=== PATIENT | female | born 1970 | race African-American/Black ===

== ENCOUNTER → 2016-12-20 | Outpatient (CLI) | payer OTHER ==
--- NOTE | 2016-12-21 02:12 | REP ---
Clinical: Cough . Comparison: None . Technique: PA and lateral. Findings: The mediastinum and cardiac silhouette are normal. The lung navarrete are clear and without acute consolidation, effusion, or pneumothorax. The skeletal structures are intact and normal. Impression: 1. No acute cardiopulmonary process. Signed by Mauricio Carr MD 12/21/2016 02:03 A
== END ==
LOC: M SMT 13:39
PROVIDERS: ATTEND Internal Medicine Pulmonary Disease
DX: R05 Cough (principal)

== ENCOUNTER → 2016-12-24 | Outpatient (REF) | payer OTHER | LOC: M LAB REF 13:09 | PROVIDERS: ATTEND Internal Medicine Pulmonary Disease | DX: R05 Cough (principal) ==

== ENCOUNTER → 2017-01-15 | Outpatient (REF) | payer OTHER | LOC: M LAB REF 14:12 | PROVIDERS: ATTEND Internal Medicine Pulmonary Disease | DX: R05 Cough (principal) ==

== ENCOUNTER → 2017-02-19 | Outpatient (REF) | payer OTHER | LOC: M LAB REF 17:20 | PROVIDERS: ATTEND Internal Medicine Pulmonary Disease | DX: R05 Cough (principal) ==

== ENCOUNTER → 2017-04-11 | Outpatient (CLI) | payer OTHER | LOC: M RAD 08:58 | DX: Z12.31 Encounter for screening mammogram for malignant neoplasm of breast (principal) | CPT/HCPCS: 77067 ==

== ENCOUNTER → 2017-07-24 | Outpatient (CLI) | payer OTHER ==
[~2017-07-24] MED LIST: LIDOCAINE 1% MDV 20ML VIAL As Ordered
== END ==
LOC: M RADPRO 12:37
DX: D44.0 Neoplasm of uncertain behavior of thyroid gland (principal); R05 Cough; R09.82 Postnasal drip; J31.0 Chronic rhinitis; K21.9 Gastro-esophageal reflux disease without esophagitis; G47.33 Obstructive sleep apnea (adult) (pediatric); G47.61 Periodic limb movement disorder; D15.2 Benign neoplasm of mediastinum; Z79.84 Long term (current) use of oral hypoglycemic drugs; Z79.899 Other long term (current) drug therapy
CPT/HCPCS: 10022

== ENCOUNTER → 2017-08-08 | Outpatient (CLI) | payer OTHER | LOC: M RADPRO 10:53 | DX: D34 Benign neoplasm of thyroid gland (principal); Z79.899 Other long term (current) drug therapy; Z79.84 Long term (current) use of oral hypoglycemic drugs | CPT/HCPCS: 10022 ==

== ENCOUNTER → 2017-11-06 | Outpatient (CLI) | payer OTHER ==
[~2017-11-06] MED LIST changes: +ISOVUE-370 76% 100ML VIAL (Q9967) As Ordered; -LIDOCAINE 1% MDV 20ML VIAL As Ordered
== END ==
LOC: M RAD 12:54
DX: D15.2 Benign neoplasm of mediastinum (principal); K44.9 Diaphragmatic hernia without obstruction or gangrene
CPT/HCPCS: Q9967

== ENCOUNTER → 2017-12-05 | Outpatient (CLI) | payer OTHER ==
[~2017-12-05] MED LIST changes: -ISOVUE-370 76% 100ML VIAL (Q9967) As Ordered; +METHACHOLINE KIT (J7674) INH
== END ==
LOC: M CARPUL 10:11
DX: R05 Cough (principal)

== ENCOUNTER 2018-04-14 09:30 | Day surgery (SDC) | payer OTHER ==
[~2018-04-14] VITALS: Ht 175.3 cm; Wt 98.9 kg
[~2018-04-14 09:30] MED LIST changes: +AMLO5TAB6 PO; +BUSP5TA PO; +DULO1CAP2 PO; +ESZO1TAB6 PO; +FLON1SPR; +GUAIFENESIN; +LOSA100T5 PO; +METF500T13 PO; -METHACHOLINE KIT (J7674) INH; +MONT10TA2 PO; +NS 1,000 ML IV ONE; +PANT40TA3 PO; +PSEUDOEPHEDRINE; +RANI1TAB38 PO
[2018-04-14] MEDS ORDERED: PROPOFOL 200 MG/20 ML VIAL As Ordered ONE (10:08)
[2018-04-14] MEDS ORDERED: LIDOCAINE 2% INJ 100 MG/5 ML SDV (FOR ANES.) As Ordered ONE (10:09)
[2018-04-14] MEDS ORDERED: LABETALOL HCL 100 MG/20 ML VIAL As Ordered ONE (11:10)
--- NOTE | 2018-04-14 11:23 | ROOR ---
Patient Name: Yoav Valle Procedure Date: 04/14/2018 10:56 AM Date of : 1970 Age: 47 Room: [facility] Gender: Female Note Status: Finalized Procedure: Total Colonoscopy to Cecum + Cold Snare Polypectomy + Hemoclips Indications: Lower abdominal pain, Change in bowel habits Providers: Rashawn James MD Referring MD: THAI ANDRE MD Requesting Provider: Medicines: Monitored Anesthesia Care Complications: No immediate complications. Procedure: Pre-Anesthesia Assessment: - The heart rate, respiratory rate, oxygen saturations, blood pressure, adequacy of pulmonary ventilation, and response to care were monitored throughout the procedure. The Colonoscope was introduced through the anus and advanced to the cecum, identified by appendiceal orifice and ileocecal valve. The colonoscopy was performed without difficulty. The patient tolerated the procedure well. The quality of the bowel preparation was excellent. Findings: The perianal and digital rectal examinations were normal. Non-bleeding internal hemorrhoids were found during retroflexion. The hemorrhoids were small and Grade I (internal hemorrhoids that do not prolapse). Multiple small and large-mouthed diverticula were found in the recto-sigmoid colon, sigmoid colon and descending colon. A medium polyp was found at 35 cm proximal to the anus. The polyp was sessile. The polyp was removed with a cold snare. Resection and retrieval were complete. To prevent bleeding after the polypectomy, one hemostatic clip was successfully placed (MR conditional). There was no bleeding at the end of the procedure. The exam was otherwise without abnormality on direct and retroflexion views. The terminal ileum appeared normal. Impression: - Non-bleeding internal hemorrhoids. - Diverticulosis in the recto-sigmoid colon, in the sigmoid colon and in the descending colon. - One medium polyp at 35 cm proximal to the anus, removed with a cold snare. Resected and retrieved. Clip (MR conditional) was placed. - The examination was otherwise normal on direct and retroflexion views. - The examined portion of the ileum was normal. - The exam was otherwise normal to the cecum. Recommendation: - Patient has a contact number available for emergencies. The signs and symptoms of potential delayed complications were discussed with the patient. Return to normal activities tomorrow. Written discharge instructions were provided to the patient. - High fiber diet. - Discharge patient to home. - Continue present medications. - Await pathology results. - Telephone GI clinic for pathology results in 1 week. - Repeat colonoscopy in 10 years for surveillance based on pathology results. - Return to referring physician. - The findings and recommendations were discussed with the patient's family. Rashawn James MD Rashawn James MD 04/14/2018 11:22:44 AM This report has been signed electronically. Number of Addenda: 0 Note Initiated On: 04/14/2018 10:56 AM Estimated Blood Loss: Estimated blood loss: none.
[2018-04-14 11:45] VITALS: BP 148/84
== END 2018-04-14 11:52 | disposition home or self-care (01) ==
LOC: M OPP 09:30
PROVIDERS: ATTEND Internal Medicine Gastroenterology
DX: R10.30 Lower abdominal pain, unspecified (principal); R19.4 Change in bowel habit; K63.5 Polyp of colon; K64.0 First degree hemorrhoids; K57.30 Diverticulosis of large intestine without perforation or abscess without bleeding; E11.9 Type 2 diabetes mellitus without complications; G47.30 Sleep apnea, unspecified; Z87.891 Personal history of nicotine dependence; Z79.84 Long term (current) use of oral hypoglycemic drugs; Z79.899 Other long term (current) drug therapy

== ENCOUNTER → 2018-07-14 | Outpatient (CLI) | payer OTHER ==
[~2018-07-14] MED LIST changes: -NS 1,000 ML IV ONE
--- NOTE | 2018-07-21 13:46 | SLEEPCENT ---
DATE OF STUDY: 07/14/2018 REFERRING PROVIDER: Abdon Segura DO INTERPRETATION: Nocturnal polysomnography was performed for retitration pressure therapy in this patient with mild obstructive sleep apnea, who previously had been on continuous positive airway pressure (CPAP) at 4 cm of water pressure. An overnight oximetry had suggested ongoing events. She had had no symptom improvement on CPAP. Her biggest concern was excessive daytime sleepiness. A total of 6 hours and 21 minutes of data was reviewed, though only 151 minutes of sleep were identified. Sleep latency was quite prolonged at 103.5 minutes. Rapid eye movement (REM) latency was 53.5 minutes. No slow-wave sleep was identified. Sleep efficiency was significantly decreased at 40.4%. Electrocardiogram (EKG) showed sinus tachycardia. No epileptiform discharge observed. The patient had been fit with a ResMed AirFit F20 full face mask of medium-size. 4 cm of water pressure was applied to the circuit, and the lights were dimmed. CPAP began at 4 cm H2O, single high of 9 cm H2O. She appeared to do best on CPAP at 6 cm H2O. On this pressure, her apnea-hypopnea index (AHI) was zero, as was her respiratory arousal index (MONTOYA). Oxygen saturation bk was 90%. Periodic limb movement index was elevated at 67.6. Supine REM sleep was seen on this pressure and a reasonably good waveform. IMPRESSION: 1. Obstructive sleep apnea, mild, reasonably palliated on CPAP at 6 cm of water pressure, including supine REM sleep. However, this study was significantly limited by a low total sleep time of. 2. Significantly prolonged sleep latency. Significant sleep insufficiency. RECOMMENDATIONS: Recommend the patient continue CPAP therapy at the above pressure via a medium ResMed AirFit F20 full face mask or mask of her preference. Clinical correlation will be necessary to ensure eradication of symptoms.
== END ==
LOC: M SLEEP 19:51
PROVIDERS: ATTEND Internal Medicine Pulmonary Disease
DX: G47.30 Sleep apnea, unspecified (principal)

== ENCOUNTER → 2018-11-24 | Outpatient (CLI) | payer OTHER ==
[~2018-11-24] MED LIST changes: -DULO1CAP2 PO; +DULO1CAP5 PO
--- NOTE | 2018-11-25 07:38 | REP ---
CT CHEST WITHOUT CONTRAST: 11/24/2018 Comparison: 11/06/2017, 12/27/[address] CT[address] protocol with coronal and sagittal reconstructions reviewed. Clinical history: Benign cystic lesion in the mediastinum. 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 It has low CT attenuation values and no calcifications. Its size is the same or a couple of millimeters smaller than the previous study. I do not see other lesions or new lesions. The heart is not enlarged with no pericardial thickening or effusion and no hiatal hernia. No pathologic sized mediastinal or hilar adenopathy. No axillary or supraclavicular masses. The lung navarrete are well inflated and show no pleural thickening. There is a 4 mm nodule in the superior segment right lower lobe as seen on image 40 of series 201. This is unchanged. No pleural thickening, calcified pleural plaque or pleural-based mass. Bone windows show sternum, manubrium, medial clavicles, small portions of the humeral heads, visualized portions of scapulae, ribs and spine without any acute finding. A few tiny calcifications aortic arch and upper abdominal aorta, unchanged. No aneurysm. Adrenal glands, upper poles kidneys, that portion of the liver, gallbladder, pancreas and spleen unremarkable. Impression: 1. Stable cystic lesion. Posterior mediastinum and below the jaylen and posterior to the aorta in the para spinal region. The same or a few millimeters smaller than previous study. Findings essentially unchanged in the chest. 2. A 4 mm stable noncalcified nodule right lower lobe findings. Electronically Signed by Kofi Alfaro MD 11/25/2018 08:22 A
== END ==
LOC: M RAD 07:40
PROVIDERS: ATTEND Thoracic Surgery (Cardiothoracic Vascular Surgery)
DX: D15.2 Benign neoplasm of mediastinum (principal)

== ENCOUNTER 2019-01-12 04:52 | Emergency (ER) | payer OTHER ==
[~2019-01-12] VITALS: Ht 167.6 cm; Wt 95.5 kg
[2019-01-12 05:50] LABS: BASO % 0.4 % (0.0-1.0); EOS # 0.2 10^3/uL (0.0-0.5); EOS % 2.2 % (0.0-3.0); HEMATOCRIT 36.6 % (36.0-47.0); HEMOGLOBIN 10.9 g/dl (12.0-15.5); LYMPH # 2.6 10^3/uL (1.5-5.0); LYMPH % 33.4 % (24.0-44.0); MEAN CORPUSCULAR HEMOGLOBIN 22.2 pg (27.0-33.0); MEAN CORPUSCULAR HGB CONC 29.8 g/dl (32.0-36.5); MEAN CORPUSCULAR VOLUME 74.7 fl (80.0-96.0); MONO # 0.3 10^3/uL (0.0-0.8); MONO % 4.1 % (0.0-5.0); NEUTROPHILS # 4.6 10^3/uL (1.5-8.5); NEUTROPHILS % 59.5 % (36.0-66.0); PLATELET COUNT, AUTOMATED 229 10^3/uL (150-450); WHITE BLOOD COUNT 7.8 10^3/uL (4.0-10.0)
[2019-01-12 05:58] LABS: INR 1.08; PROTHROMBIN TIME 13.7 SECONDS (11.8-14.0)
[2019-01-12 06:11] LABS: INFLUENZA A AMPLIFICATION NEGATIVE (NEGATIVE); INFLUENZA B AMPLIFICATION NEGATIVE (NEGATIVE)
[2019-01-12 06:14] LABS: BLOOD UREA NITROGEN 13 MG/DL (7-18); CALCIUM LEVEL 7.5 MG/DL (8.5-10.1); CARBON DIOXIDE LEVEL 24 MEQ/L (21-32); CHLORIDE LEVEL 114 MEQ/L (98-107); CK-MB VALUE MASS 1.2 NG/ML (<3.6); CPK CREATINE PHOSPHOKINASE 262 U/L (26-192); CREATININE FOR GFR 0.73 MG/DL (0.55-1.30); GLOMERULAR FILTRATION RATE > 60.0 (>58); GLUCOSE, FASTING 133 MG/DL (70-100); MB/CK RELATIVE INDEX 0.46 (< OR =4); POTASSIUM SERUM 3.7 MEQ/L (3.5-5.1); SODIUM LEVEL 145 MEQ/L (136-145); TROPONIN I < 0.02 NG/ML (< 0.10)
[2019-01-12] MEDS ORDERED: ZITHTAB PO (06:16)
[2019-01-12] MEDS ORDERED: PRED20TA PO (06:16)
[2019-01-12 06:22] VITALS: BP 141/91
--- NOTE | 2019-01-12 06:45 | REP ---
Clinical: Chest pain . Comparison: None . Findings: The mediastinum and cardiac silhouette are stable and within normal limits for portable technique. The lung navarrtee are clear without acute consolidation, effusion, or pneumothorax. Skeletal structures are intact. Impression: No acute cardiopulmonary process appreciated. Electronically Signed by Mauricio Carr MD 01/12/2019 06:37 A
--- NOTE | 2019-01-13 07:33 | ECGEPIP ---
[facility] - ED Test Date: 2019-01-12 Pat Name: PEYTON LEIJA Department: Room: - Gender: Female Line Locator: [place] : 1970 Requested By: HASMUKH ROSS Order Number: [id number] Reading MD: Ricardo Wong Measurements Intervals [place] Rate: 94 P: 51 NE: 124 QRS: 52 QRSD: 99 T: 61 QT: 342 QTc: 430 Interpretive Statements SINUS RHYTHM Comparison tracing not on file Electronically Signed on 01-13-2019 7:33:26 EST by Ricardo Wong
== END 2019-01-12 06:26 | disposition home or self-care (01) ==
LOC: M ED 04:52
DX: J20.9 Acute bronchitis, unspecified (principal); K21.9 Gastro-esophageal reflux disease without esophagitis; F32.9 Major depressive disorder, single episode, unspecified; F41.9 Anxiety disorder, unspecified; J45.909 Unspecified asthma, uncomplicated; F17.200 Nicotine dependence, unspecified, uncomplicated; Z79.899 Other long term (current) drug therapy